=== PATIENT | male | born 1955 | race Caucasian/White ===

== ENCOUNTER 2019-08-26 12:43 | Emergency (ER) | payer MEDICAID, OTHER ==
[2019-08-26] MEDS ORDERED: propofoL 100 ML ONE (12:59)
--- NOTE | 2019-08-26 13:13 | CT ---
Head CT Technique: Multiple axial sections through the brain were obtained. Intravenous contrast was not utilized. Comparison: Prior head CT exam of 01/10/15. Findings: Large acute on chronic right-sided subdural hematoma is seen. This hematoma has a thickness of approximately 2.1 cm and extends from the frontal along the temporal and parietal regions. This causes significant mass effect with midline shift of approximately 1.8 cm. Early brainstem compression is noted. Small amount of subarachnoid blood is seen within the sylvian fissures on both sides. Diminished density noted within the right periventricular subcortical white matter compatible with old infarct. Small vessel ischemic demyelination change is also noted. Mild mucosal thickening is seen within both maxillary and ethmoid sinuses. No acute calvarial abnormality is appreciated. Impression: 1. Large acute on chronic right-sided subdural hematoma causing significant mid line shift and early brainstem compression. 2. Small amount of subarachnoid blood within the sylvian fissures on both sides. 3. Other senescent change as noted above. Diagnostic code #3 Study was dictated in MDT
[2019-08-26] MEDS ORDERED: Midazolam 1 MG/ML 2 ML SDV ONE (13:19)
[2019-08-26] MEDS ORDERED: fentaNYL 50 MCG/ML SDV ONE (13:20)
--- NOTE | 2019-08-26 13:21 | CT ---
CT cervical spine Technique: Multiple axial sections were obtained from above C1 inferiorly to the bottom of T2. Reconstructed sagittal and coronal images were obtained. Findings: Findings suspicious for partially visualized nondisplaced temporal bone fracture on the left side. Head CT study was reviewed which does not show this finding which most likely relates to the differences in slice thickness. Other portions of the skull base appear intact. Severe disc space narrowing is noted at C3-C4, C4-C5, C5-C6 with moderate disc space narrowing at C6-C7. Degenerative change is noted between the anterior arch of C1 and the dens. Mild posterior osteophytes are noted at C3-C4 through 6 and C6-C7. Mild anterior osteophytes on C3-C4 through C5-C6. Mild degenerative change is noted throughout the apophyseal joints. No fracture is appreciated. Mild neural foraminal stenosis is noted on the left side at C5-C6. Other neural foramina are felt patent. No bony central canal stenosis is seen. Emphysematous changes are seen within both lung apices with areas of parenchymal scarring. Impression: 1. Partially visualized nondisplaced temporal bone fracture on the left side. This is not seen even in retrospect on prior head CT exam most likely relating to differences in scan thickness. 2. Degenerative change as noted above. 3. Emphysematous changes with parenchymal scarring within both lung apices. 4. No acute fracture or abnormal subluxation is seen on CT study of the cervical spine. Diagnostic code #3 Study was dictated in MDT
[2019-08-26] MEDS ORDERED: Labetalol 100 MG/20 ML MDV IVPUSH ONE (13:25)
[2019-08-26] MEDS ORDERED: Labetalol 100 MG/20 ML MDV ONE (13:26)
--- NOTE | 2019-08-26 13:41 | EDM.PDOC ---
ED HPI GENERAL MEDICAL PROBLEM - General Chief Complaint: Neuro Symptoms/Deficits Stated Complaint: STROKE CODE Time Seen by Provider: 08/26/19 12:53 Source of Information: Reports: EMS Notes Reviewed History Limitations: Reports: Altered Mental Status, Other (Refill left side as much as the right side.) - History of Present Illness INITIAL COMMENTS - FREE TEXT/NARRATIVE: Was altered last seen by neighbor last night. Patient unable to give a history secondary to altered level of consciousness. Duration: Day(s): Location: Reports: Head Severity: Severe - Related Data Allergies Allergy/AdvReac Type Severity Reaction Status Date / Time No Known Allergies Allergy Verified 08/26/19 12:52 Home Meds: Home Meds Diltiazem HCl [Diltiazem ER] 360 mg PO DAILY 09/10/13 [History] carisoprodoL [Carisoprodol] 350 mg PO QID PRN 09/10/13 [History] Multivitamin [Multivitamins] 1 tab PO DAILY 05/04/14 [History] Aspirin 1 tab PO DAILY 01/10/15 [History] Digoxin 1 tab PO DAILY 01/10/15 [History] Furosemide 80 mg PO DAILY 01/10/15 [History] Lisinopril 1 tab PO DAILY 01/10/15 [History] Past Medical History - Infectious Disease History Infectious Disease History: Reports: Other (See Below) Other Infectious Disease History: unknown - Past Surgical History Other Musculoskeletal Surgeries/Procedures:: "Back surgery" 1974 ED ROS GENERAL - Review of Systems Review Of Systems: Comprehensive ROS is negative, except as noted in HPI. ED EXAM, NEURO - Physical Exam Exam: See Below Exam Limited By: Altered Mental Status General Appearance: Obtunded Eye Exam: Bilateral Eye: Abnormal EOM, Abnormal Pupil Ears: Normal External Exam Nose: Normal Inspection, Normal Mucosa Throat/Mouth: Normal Inspection, Normal Lips Head Exam: Atraumatic Neck: Normal Inspection, Supple, Non-Tender Respiratory/Chest: Lungs Clear Cardiovascular: Normal Peripheral Pulses Neurological: Alert, Normal Mood/Affect, Extensor Response to Pain, Withdraws to Pain Back Exam: Normal Inspection Psychiatric: Normal Affect Skin Exam: Warm ED NEURO PROCEDURES - Endotracheal Intubation Time of Intubation: 13:47 ET Intubation Indication: Airway Protection Airway Assessment: Loose Teeth Anesthesia Meds: Etomidate, Propofol (Patient intubated using etomidate size 8 intubation tube), Succinylcholine Placement: Orotracheal Cords Visualized: Grade 3 ETT Size In mm: 8 Confirmed By: Bilateral Breath Sounds, Chest Xray Course - Vital Signs Text/Narrative:: This 63-year-old gentleman presents the emergency room with a chief complaint of being found altered in the field. And not moving left side more than right side pupils equal reactive light accommodation left last seen last night by neighbor. Graph patient O2 saturation 100% on oxygen no evidence of secretions patient sent to CT scan of the head and neck. CT scan results show the patient has a obvious cervical subdural hematoma patient intubated size 8. Patient also started on propofol. Intubation with etomidate and succinylcholine. Patient also given 50 rocuronium. ER course: Patient was accepted by Dr. Miller at [place]. Diagnosis Acute subdural hematoma with shift Will be transferred for higher level of care. - Orders/Labs/Meds Orders: Active Orders 24 hr Category Date Time Status EKG 12 Lead [EKG Documentation Completion] [RC] STAT Care 08/26/19 12:55 Active Chest 1V Frontal [CR] Stat Exams 08/26/19 12:53 Taken CBC WITH AUTO DIFF [HEME] Stat Lab 08/26/19 12:40 Received COMPREHENSIVE METABOLIC PN,CMP [CHEM] Stat Lab 08/26/19 12:40 Received TROPONIN I [CHEM] Stat Lab 08/26/19 12:40 Received Labs: Laboratory Tests 08/26/19 Range/Units 12:40 INR 1.66 Meds: Medications Discontinued Medications Generic Name Dose Route Start Last Admin Trade Name Cuongq PRN Reason Stop Dose Admin Fentanyl Confirm 08/26/19 13:20 Fentanyl Administered 08/26/19 13:21 Dose 50 mcg .ROUTE .STK-MED ONE Propofol Confirm 08/26/19 12:59 Diprivan 100 Ml Administered 08/26/19 13:00 Dose 100 mls @ as directed .ROUTE .STK-MED ONE Labetalol HCl 20 mg 08/26/19 13:25 Normodyne IVPUSH 08/26/19 13:26 ONETIME ONE Protocol Labetalol HCl Confirm 08/26/19 13:26 Normodyne Administered 08/26/19 13:27 Dose 100 mg .ROUTE .STK-MED ONE Midazolam HCl Confirm 08/26/19 13:19 Versed 1 Mg/Ml Administered 08/26/19 13:20 Dose 2 mg .ROUTE .STK-MED ONE Departure - Departure Time of Disposition: 13:53 Disposition: DC/Tfer to Acute Hospital 02 Condition: Critical Clinical Impression: Acute subdural hematoma, Acute spontaneous subarachnoid intracranial hemorrhage - Discharge Information Forms: ED Department Discharge Sepsis Event Note - Focused Exam Date Exam was Performed: 08/26/19 Time Exam was Performed: 13:45 - My Orders Last 24 Hours: My Active Orders 08/26/19 12:40 CBC WITH AUTO DIFF [HEME] Stat COMPREHENSIVE METABOLIC PN,CMP [CHEM] Stat TROPONIN I [CHEM] Stat 08/26/19 12:53 Chest 1V Frontal [CR] Stat 08/26/19 12:55 EKG 12 Lead [EKG Documentation Completion] [RC] STAT - Assessment/Plan Last 24 Hours: My Active Orders 08/26/19 12:40 CBC WITH AUTO DIFF [HEME] Stat COMPREHENSIVE METABOLIC PN,CMP [CHEM] Stat TROPONIN I [CHEM] Stat 08/26/19 12:53 Chest 1V Frontal [CR] Stat 08/26/19 12:55 EKG 12 Lead [EKG Documentation Completion] [RC] STAT
[2019-08-26 13:42] LABS: BLOOD UREA NITROGEN,BUN 11 mg/dL (7.0-18.0); CARBON DIOXIDE,CO2 22.7 mmol/L (21.0-32.0); CHLORIDE,CL 91 mmol/L (98-107); GLUCOSE RANDOM 85 mg/dL (74-106); POTASSIUM,K 4.9 mmol/L (3.5-5.1); SODIUM,NA 124 mmol/L (136-148)
[2019-08-26] MEDS ORDERED: Propofol 200 MG/20 ML SDV IVPUSH ONE (14:08)
[2019-08-26] MEDS ORDERED: Etomidate 2 MG/ML 20 ML SDV IVPUSH ONE (14:08)
[2019-08-26] MEDS ORDERED: Rocuronium 100 MG/10 ML Syringe IVPUSH ONE (14:08)
[2019-08-26] MEDS ORDERED: Sodium Chloride 0.9% 1,000 ML IV SCH ×2 (14:15→15:00)
[2019-08-26] MEDS ORDERED: propofoL 100 ML IV SCH (14:15)
[2019-08-26 14:17] VITALS: BP 187/117; PULSE 108
--- NOTE | 2019-08-26 15:35 | CR ---
Chest: Frontal view of the chest was obtained. Comparison: No prior chest imaging. Heart is enlarged. Pulmonary vessels may be slightly congested. Tip of nasogastric tube lies within the stomach. Scattered degenerative change is noted within the spine. Endotracheal tube appears to be present lying midway between the clavicle and kurt. Impression: 1. Cardiomegaly and questionable pulmonary vascular congestion. 2. Satisfactory position of endotracheal tube and nasogastric tube. Diagnostic code #3 Study was dictated in MDT
== END 2019-08-26 14:07 ==
LOC: MW.ED 12:43
DX: I62.00 Nontraumatic subdural hemorrhage, unspecified (principal); I60.9 Nontraumatic subarachnoid hemorrhage, unspecified; Z79.82 Long term (current) use of aspirin; Z79.899 Other long term (current) drug therapy
CPT/HCPCS: 31500; 51702; 70450; 71045; 72125; 80053; 84484; 85025; 85610; 93005; 96360; 96361; 99285; J0330; J2704; J3490; J7030